=== PATIENT | female | born 1990 | race Caucasian/White ===

== ENCOUNTER → 2023-08-08 | Emergency (ER) | payer SELFPAY ==
--- OUTSIDE RECORDS SUMMARY | 2023-08-08 19:55 | XMS REPORT | Continuity of Care Document ---
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 >=60 max estimate Glucose (74 - 106 mg/dL) 76 Calcium (8.6 - 10.3 mg/dL) 9.8 Total Bilirubin (0.3 - 1.2 mg/dL) 0.5 AST (0 - 34 U/L) 21 ALT (10 - 49 U/L) 16 Total Alk Phosphatase (46 - 116 U/L) 67 Total Creatine Kinase (34 - 145 U/L) 76 Total Protein (5.7 - 8.2 g/dL) 7.6 Albumin (3.4 - 5.0 g/dl) 4.1 TSH (0.55 - 4.78 uIU/mL) 2.103 Serum HCG, Qual (NEGATIVE) NEGATIVE Hematology WBC (5.0 - 12.0 K/mm3) 9.25 RBC (4.20 - 5.40 M/mm3) 4.31 Hgb (12.0 - 16.0 G/DL) 13.2 Hct (34.9 - 44.5 %) 39.8 MCV (81 - 99 fL) 92 MCH (27 - 31 PGM) 30.6 MCHC (33 - 37 G/DL) 33.2 RDW (11.6 - 16.2 %) 12.8 Plt Count (130 - 400 K/mm3) 308 MPV (7.4 - 10.4 fl) 9.1 Neut % (Auto) (43 - 65 %) 65.2 H Lymph % (Auto) (20.5 - 45.5 %) 22.6 [place] % (Auto) (5.5 - 11.7 %) 6.6 Eos % (Auto) (0.9 - 2.9 %) 4.4 H Baso % (Auto) (0.2 - 1.0 %) 0.9 Neut # (Auto) (2.2 - 4.8 K/mm3) 6.03 H Lymph # (Auto) (1.3 - 2.9 K/mm3) 2.09 [place] # (Auto) (0.3 - 0.8 K/mm3) 0.61 Eos # (Auto) (0.0 - 0.2 K/MM3) 0.41 H Baso # (Auto) (0.0 - 0.1 K/mm3) 0.08 Immature Gran % (0.0 - 2.0 %) 0.3 Nucleated RBC % (0 - 1.0 %) 0.0 Serology SARS-CoV-2 Ag (Rapid) (Negative) NEGATIVE Toxicology Salicylates (0.0 - 30.0 mg/dL) < 3.0 Acetaminophen (10 - 20 ug/mL) < 2.0 L Ethyl Alcohol (0.0 - 80.0 mg/dL) < 3.0 Microbiology: Date/Time Procedure - Status Source Growth 12/27 214 Urine Culture - COMP URINE Re-Evaluation MDM Free Text MDM NotesAdditional TextCare assumed from Dr. Ronda Reynaga around 10 PM 12/27/2021. Patient stable overnight, seen in room in no distress, is awaiting inpatient psychiatric bed availability. Care transitioning to Dr. Isaac Pineda around 6 AM 12/28/2021 Patient Discharge Departure Vital Signs/ConditionVital SignsFirst Documented: Result Date Time Pulse Ox 98 12/26 235 B/P 120/70 12/26 2352 B/P Mean 86 12/26 2352 Temp 98.7 12/26 2352 Pulse 100 12/26 2352 Resp 22 12/26 2352 O2 Delivery Room air 12/27 2232 Last Documented: Result Date Time Pulse Ox 99 12/28 1001 B/P 96/59 12/28 1001 B/P Mean 71.7 12/28 1001 Temp 98.4 12/28 1001 Pulse 81 12/28 1001 Resp 18 12/28 1001 O2 Delivery Room air 12/27 2233 All vital signs available at the time of this entry have been reviewed. Clinical ImpressionClinical ImpressionPrimary Impression: Acute psychosisSecondary Impressions: Suicidal ideations Disposition DecisionTransfer )( Request Time 0511 )( Request Date 12/28/21 Ashli Pineda 12/28/21 1503:Re-Evaluation MDM Free Text MDM NotesAdditional [id number] 12/28/21 patient has elected to sign out AMA Patient Discharge Departure Disposition DecisionOther )( Time 1503 )( Date 12/28/21 Against Medical Advice Yes at 0511 at 1503 at 0505 at 0229RPT #:[id number] OF REPORTEDEmerbaptist [facility] department [id number].[id number] ilable for patient [id number] HCATB
--- NOTE | 2023-08-08 21:07 | RAD REPORT ---
EXAM DESCRIPTION: RAD - Tib Fib Left - 08/08/2023 9:00 pm CLINICAL HISTORY: PAIN COMPARISON: No comparisons FINDINGS: No acute fracture or dislocation.
--- NOTE | 2023-08-08 21:20 | EDPHYS ---
Physician Documentation [facility] Name: Moriah Gandhi Age: 33 yrs Sex: Female : 1990 Arrival Date: 08/08/2023 Time: 19:52 Bed DX3 Private MD: ED Physician Israel Zaragoza HPI: 08/08 21:18 This 33 yrs old Female presents to ER via Wheelchair with complaints of Ankle Injury. kb 21:18 Patient is a 33-year-old female who presents for left lower leg and ankle pain after kb falling while walking her dog at 1 PM. States she has been able to walk.. REGISTERED NURSE AMBULATORY: 20:09 LMP 08/06/2023, unknown km8 Historical: - Allergies: 20:09 No Known Allergies; km8 - Home Meds: 20:09 Prozac 20 mg Oral capsule 1 cap daily [Active]; km8 - PMHx: 20:09 Depressive disorder; km8 - PSHx: 20:09 None; km8 - Immunization history:: Client reports receiving the 2nd dose of the Covid vaccine, Flu vaccine is not up to date. - Social history:: Smoking status: Patient reports the use of cigarette tobacco products, smokes one-half pack cigarettes per day, Patient/guardian denies using alcohol, street drugs. ROS: 21:18 Constitutional: Negative for fever, chills, and weight loss, kb 21:18 MS/extremity: Positive for pain, of the left posey and left ankle, 21:18 All other systems are negative, Exam: 21:18 Constitutional: This is a well developed, well nourished patient who is awake, alert, kb and in no acute distress. Head/Face: Normocephalic, atraumatic. ENT: Moist Mucous membranes Respiratory: Respirations even and unlabored. No increased work of breathing. Talking in full sentences Skin: Warm, dry with normal turgor. Normal color. Neuro: Awake and alert, GCS 15, oriented to person, place, time, and situation. Moves all extremities. Normal gait. 21:18 Musculoskeletal/extremity: Extremities: grossly normal except: noted in the left posey and left ankle: pain, tenderness, ROM: intact in all extremities, Circulation is intact in all extremities. Sensation intact. Weight bearing: able to fully bear weight, Vital Signs: 20:08 BP 129 / 72; Pulse 92; Resp 16; Temp 98.8(TE); Pulse Ox 100% on R/A; Weight 86.18 kg km8 (R); Height 5 ft. 2 in. (R); Pain 5/10; 20:08 Body Mass Index 34.75 (86.18 kg, 157.48 cm) km8 20:08 Pain Scale: Adult km8 MDM: 20:05 Patient medically screened. kb 21:18 Differential diagnosis: fracture, sprain. Data reviewed: vital signs, nurses notes. kb Counseling: I had a detailed discussion with the patient and/or guardian regarding the historical points, exam findings, and any diagnostic results supporting the discharge/admit diagnosis, radiology results, the need for outpatient follow up, a family practitioner, to return to the emergency department if symptoms worsen or persist or if there are any questions or concerns that arise at home. 08/08 20:10 Order name: Tib Fib Left XRAY; Complete Time: 21:08 kb 08/08 21:08 Order name: Sean Wrap; Complete Time: 21:40 kb Administered Medications: No medications were administered Disposition: 08/09 09:04 Co-signature as Attending Physician, Israel Zaragoza MD I reviewed the patient's care rn provided by the Advanced Practice Provider and agree with the diagnosis and treatment plan. Disposition Summary: 08/08/23 21:19 Discharge Ordered Notes: Location: Home Condition: Stable kb Diagnosis - Sprain of ankle kb Followup: kb - With: Emergency Department - When: As needed - Reason: Worsening of condition Followup: kb - With: Private Physician - When: 2 - 3 days - Reason: Recheck today's complaints, Continuance of care, Re-evaluation by your physician Discharge Instructions: - Discharge Summary Sheet kb - Ankle Sprain, [id number] kb Forms: - Medication Reconciliation Form kb - Thank You Letter kb - Antibiotic Education kb - Prescription Opioid Use kb - Patient Portal Instructions kb - Leadership Thank You Letter kb Signatures: Dispatcher [employer] Majo Khoury, CLEOPATRA-C BEEF SPECIALIST-Israel Larry MD MD rn Marx, Katie, RN RN km8
--- NOTE | 2023-08-08 21:20 | ER ---
Nurse's Notes [facility] Name: Moriah Gandhi Age: 33 yrs Sex: Female : 1990 Arrival Date: 08/08/2023 Time: 19:52 Bed DX3 Private MD: Diagnosis: Sprain of ankle Presentation: 08/08 20:08 Chief complaint: Patient states: rolled ankle at 1300 while walking dog; pain worse km8 with walking; swelling noted. Coronavirus screen: Client denies travel out of the [place] in the last 14 days. Ebola Screen: No symptoms or risks identified at this time. Initial Sepsis Screen: Does the patient meet any 2 criteria? HR > 90 bpm. No. Patient's initial sepsis screen is negative. Does the patient have a suspected source of infection? No. Patient's initial sepsis screen is negative. Risk Assessment: Do you want to hurt yourself or someone else? Patient reports no desire to harm self or others. Onset of symptoms was August 08, 2023 at 13:00. 20:08 Method Of Arrival: Wheelchair km8 20:08 Acuity: NANCY 4 km8 Triage Assessment: 20:09 General: Appears in no apparent distress. uncomfortable, Behavior is calm, cooperative, km8 appropriate for age. Pain: Complains of pain in left ankle Pain currently is 5 out of 10 on a pain scale. EENT: No signs and/or symptoms were reported regarding the EENT system. Neuro: Level of Consciousness is awake, alert, obeys commands, Oriented to person, place, time, situation. Cardiovascular: Denies chest pain, shortness of breath, Capillary refill < 3 seconds Patient's skin is warm and dry. Respiratory: Airway is patent Respiratory effort is even, unlabored, Respiratory pattern is regular, symmetrical. GI: No signs and/or symptoms were reported involving the gastrointestinal system. : No signs and/or symptoms were reported regarding the genitourinary system. Derm: Skin is intact, is healthy with good turgor, Skin is dry, Skin is pink, warm \T\ dry. normal, Skin temperature is warm. Musculoskeletal: Range of motion: limited in left ankle Swelling present in left ankle Reports pain in left ankle. 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 - Social history:: Smoking status: Patient reports the use of cigarette tobacco products, smokes one-half pack cigarettes per day, Patient/guardian denies using alcohol, street drugs. Screenin:40 [facility] ED Fall Risk Assessment (Adult) Score/Fall Risk Level 0 - 2 = Low Risk. Abuse as6 screen: Denies threats or abuse. Denies injuries from another. Nutritional screening: No deficits noted. Tuberculosis screening: No symptoms or risk factors identified. Vital Signs: 20:08 BP 129 / 72; Pulse 92; Resp 16; Temp 98.8(TE); Pulse Ox 100% on R/A; Weight 86.18 kg km8 (R); Height 5 ft. 2 in. (R); Pain 5/10; 20:08 Body Mass Index 34.75 (86.18 kg, 157.48 cm) km8 20:08 Pain Scale: Adult [facility] ED Course: 19:59 Patient arrived in ED. gm2 20:05 Majo Monae FNP-C [facility]. kb 20:05 Israel Zaragoza MD is Attending Physician. kb 20:09 Triage completed. km8 20:09 Arm band placed on right wrist. km8 21:02 Tib Fib Left XRAY In Process Unspecified. EDMS 21:40 Bed in low position. Call light in reach. Provided Education on: follow up. as6 21:40 No provider procedures requiring assistance completed. Patient did not have IV access as6 during this emergency room visit. 21:41 Sean wrap to left ankle. as6 Administered Medications: No medications were administered Medication: 21:40 VIS not applicable for this client. as6 Outcome: 21:19 Discharge ordered by . kb 21:40 Discharged to home via wheelchair, with family, as6 21:40 Condition: stable 21:40 Discharge instructions given to patient, Instructed on discharge instructions, follow up and referral plans. Demonstrated understanding of instructions, follow-up care, 21:41 Patient left the ED. as6 Signatures: Dispatcher [employer] EDMS Majo Monae, CLEOPATRA-C MANAGER ENGLISH-Jay Jay العراقي RN RN as6 Falguni Fernandez 2 Batsheva Zheng RN RN km8
[2023-08-09 01:13] VITALS: BP 129/72; TEMP 98.8; O2SAT 100
== END ==
LOC: ER 19:52
DX: S93.402A Sprain of unspecified ligament of left ankle, initial encounter (principal)